=== PATIENT | male | born 1930 | race Hispanic/Latino ===

== ENCOUNTER 2017-04-27 16:57 | Emergency (ER) | payer MEDICARE ==
[2017-04-27 17:42] LABS: BASO % 0.4 % (0.0-2.0); EOS # 0.1 K/uL (0.0-0.7); EOS % 1.2 % (0.0-4.0); HEMATOCRIT 48.7 % (35.0-51.0); LYMPH # 1.5 K/uL (1.0-4.3); LYMPH % 30.6 % (20.0-40.0); MEAN CELL VOLUME 92.7 fL (80.0-94.0); MEAN CORPUSCULAR HEMOGLOBIN 31.4 pg (27.0-31.0); MEAN CORPUSCULAR HGB CONC 33.9 g/dL (33.0-37.0); MEAN PLATELET VOLUME 7.2 fL (7.2-11.7); MONO # 0.4 K/uL (0.0-0.8); MONO % 8.8 % (0.0-10.0); NRBC % 0.3 % (0.0-2.0); RED CELL DISTRIBUTION WIDTH 13.9 % (11.5-14.5); WHITE BLOOD COUNT 4.8 K/uL (4.8-10.8)
[2017-04-27 17:57] LABS: ALB/GLOB RATIO 1.6 (1.0-2.1); ALKALINE PHOSPHATASE 54 U/L (38-126); ALT/SGPT 26 U/L (21-72); AST/SGOT 25 U/L (17-59); BILIRUBIN,TOTAL 1.3 mg/dL (0.2-1.3); BLOOD UREA NITROGEN 19 mg/dL (9-20); CALCIUM 9.5 mg/dl (8.6-10.4); CARBON DIOXIDE 21 mmol/L (22-30); CHLORIDE 108 mmol/L (98-107); GFR AFRICAN-AMERICAN > 60; GLUCOSE,RANDOM 118 mg/dL (75-110); POTASSIUM 4.2 mmol/L (3.6-5.2); SODIUM 142 mmol/L (132-148); TOTAL PROTEIN 6.2 g/dL (6.3-8.3)
--- NOTE | 2017-04-27 18:25 | RAD ---
PROCEDURE: CHEST RADIOGRAPH, 1 VIEW HISTORY: chest pain COMPARISON: 05/29/2015 FINDINGS: LUNGS: Clear. PLEURA: No pneumothorax or pleural fluid seen. CARDIOVASCULAR: Normal. OSSEOUS STRUCTURES: No significant abnormalities. VISUALIZED UPPER ABDOMEN: Normal. OTHER FINDINGS: None. IMPRESSION: No active disease.
[2017-04-27 18:28] LABS: THYROID STIMULATING HORMONE 0.12 mIU/L (0.46-4.68)
[2017-04-27 19:27] VITALS: BP 162/83; PULSE 76; RESP 20; TEMP 98.3; O2SAT 95
--- NOTE | 2017-04-27 20:34 | C.PDOC ---
History Of Present Illness 86 year old male presents to the emergency department with complaints of palpitations beginning earlier today and lasted twenty seconds. Patient denies chest pain, fever, cough, dizziness, SOB, or headache. Time Seen by Provider: 04/27/17 17:15 Chief Complaint (Nursing): Medical Clearance History Per: Patient History/Exam Limitations: no limitations Onset/Duration Of Symptoms: Hrs Current Symptoms Are (Timing): Gone Recent travel outside of the [place]: No Past Medical History Reviewed: Historical Data, Nursing Documentation, Vital Signs Vital Signs: Last Vital Signs Temp 98.3 F 04/27/17 19:26 Pulse 76 04/27/17 19:26 Resp 20 04/27/17 19:26 BP 162/83 H 04/27/17 19:26 Pulse Ox 95 04/27/17 20:50 - Medical History PMH: Benign Prostatic Hyperplasia - [facility] Procedures INTRAOPER CHOLANGIOGRAM (05/25/13) LAPAROSCOPIC CHOLECYSTECTOMY (05/25/13) Family History: States: Unknown Family Hx - Social History Hx Tobacco Use: No Hx Alcohol Use: No Hx Substance Use: No - Immunization History Hx Tetanus Toxoid Vaccination: No Hx Influenza Vaccination: No Hx Pneumococcal Vaccination: No Review Of Systems Constitutional: Negative for: Fever, Chills Cardiovascular: Positive for: Palpitations. Negative for: Chest Pain Respiratory: Negative for: Cough, Shortness of Breath Neurological: Negative for: Headache Physical Exam - Physical Exam Appears: Non-toxic, No Acute Distress Skin: Warm, Dry Head: Atraumatic Eye(s): bilateral: Normal Inspection Oral Mucosa: Moist Neck: Supple Chest: Symmetrical, No Deformity, No Tenderness Cardiovascular: Rhythm Regular (80 bpm) Respiratory: Normal Breath Sounds, No Rhonchi, No Wheezing Neurological/Psych: Oriented x3, Normal Speech, Normal Cognition Gait: Steady ED Course And Treatment - Laboratory Results Result Diagrams: 04/27/17 17:37 04/27/17 17:37 ECG Rhythm: Sinus Rhythm (80 bpm ) Interpretation Of ECG: Left bundle branch block, 80 bpm, no change from 05/2013 EKG. O2 Sat by Pulse Oximetry: 95 (room air ) Progress Note: EKG was ordered and patient was given IV fluids. Upon re- evaluation, patient feels comfortable and will be discharged. Reassessment Condition: Improved Disposition - Disposition Referrals: [facility] Jagjit Melton, [Non-Staff] - Disposition: HOME/ ROUTINE Disposition Time: 18:35 Condition: GOOD Additional Instructions: Thank you for letting us take care of you today. Your provider was Dr. Farias. You were treated for palpitations. The emergency medical care you received today was directed at your acute symptoms. If you were prescribed any medication, please fill it and take as directed. It may take several days for your symptoms to resolve. Return to the Emergency Department if your symptoms worsen, do not improve, or if you have any other problems. Please contact your doctor or call one of the physicians/clinics you have been referred to that are listed on the Patient Visit Information form that is included in your discharge packet. Bring any paperwork you were given at discharge with you along with any medications you are taking to your follow up visit. Our treatment cannot replace ongoing medical care by a primary care provider (PCP) outside of the emergency department. Thank you for allowing the [facility] team to be part of your care today. Follow up with your doctor in 2 days for re-evaluation and further management. Instructions: Palpitations (ED) Forms: [employer] (German) - Clinical Impression Clinical Impression: Palpitations - Scribe Statement The provider has reviewed the documentation as recorded by the Scribe Sol Sevilla All medical record entries made by the Scribe were at my direction and personally dictated by me. I have reviewed the chart and agree that the record accurately reflects my personal performance of the history, physical exam, medical decision making, and the department course for this patient. I have also personally directed, reviewed, and agree with the discharge instructions and disposition.
--- NOTE | 2017-04-30 20:48 | CARD ---
APPROVED REPORT EKG Measurement Heart [id number] MD [id number] [id number] <Conclusion> Normal sinus rhythm Left axis deviation Left bundle branch block Abnormal ECG
== END 2017-04-27 19:26 | disposition home or self-care (01) ==
LOC: C.ER 16:57
DX: R00.2 Palpitations (principal)

== ENCOUNTER 2017-08-03 10:56 | Observation (INO) | payer MEDICARE ==
[2017-07-12 10:36] VITALS: BMI 25.8
[2017-08-03] MEDS ORDERED: cefTRIAXone IV 1 gm in Dextros 50 ML IVPB ONE (14:30)
[2017-08-03] MEDS ORDERED: Lidocaine 2% Jelly (Uro-Jet) ONE (14:30)
[2017-08-03] MEDS ORDERED: Lactated Ringer's 1,000 ML IV ONE (14:35)
[2017-08-03] MEDS ORDERED: Propofol 10 mg/ml Inj (20 ML) ONE (14:40)
[2017-08-03] MEDS ORDERED: HYDROmorphone 0.5 mg/0.5 ml ISec IVP PRN (15:28)
--- NOTE | 2017-08-03 15:37 | PCM.SURG1 ---
Surgeon's Initial Post Op Note - Surgeon's Notes Surgeon: vilma webber Concrete Bucket Loader: none Type of Anesthesia: General LMA Pre-Operative Diagnosis: hx of bladder tumor Operative Findings: same. abnormal mucosa at bn and prox prostatic urethra Post-Operative Diagnosis: same Operation Performed: TUR-BN, -PROSTATE Specimen/Specimens Removed: BN, PROSTATE Estimated Blood Loss: EBL {In ML}: 10 Blood Products Given: N/A Post-Op Condition: Good Date of Surgery/Procedure: 08/03/17 Time of Surgery/Procedure: 15:37
--- NOTE | 2017-08-03 21:17 | CP.PCM.HP ---
<Yoselin Amaro - Last Filed: 08/03/17 21:44> History of Present Illness - History of Present Illness History of Present Illness: This patient is an 86 year old male with PMHx of HTN and Bladder tumor admitted to the hospital for medical management s/p transuretal resection. Patient has no complaints at this time. He denies any fever, chills, chest pain, sob, or dysuria. ROS (+) very mild suprapubic tenderness (-) fever, chills, chest pain, sob, abdominal pain, n/v, changes in bowel habits, or dysuria PMHx: HTN, Bladder Tumor PSH: cholecystectomy (2012) Allergies: Denies SocialHx: Former smoker 1PPD for 30 years. Quit 15 years ago. Denies Alcohol or illicit drug use. 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 FamHx: Non-Contributory Meds: Valsartan 80 Daily, Flomax 0.4 Daily Present on Admission - Present on Admission Any Indicators Present on Admission: No Review of Systems - Review of Systems All systems: reviewed and no additional remarkable complaints except Review of Systems: As per HPI Past Patient History - Past Medical History & Family History Past Medical History?: Yes - Past Social History Smoking Status: Never Smoked - CARDIAC Hx Hypertension: Yes - PULMONARY Hx Respiratory Disorders: No - NEUROLOGICAL Hx Neurological Disorder: No - HEENT Hx HEENT Problems: Yes Hx Cataracts: Yes Other/Comment: retina problem - RENAL Hx Chronic Kidney Disease: No - ENDOCRINE/METABOLIC Hx Endocrine Disorders: No - HEMATOLOGICAL/ONCOLOGICAL Hx Blood Disorders: No - INTEGUMENTARY Hx Dermatological Problems: No - MUSCULOSKELETAL/RHEUMATOLOGICAL Hx Musculoskeletal Disorders: Yes Hx Osteoarthritis: Yes - GASTROINTESTINAL Hx Gastrointestinal Disorders: No - GENITOURINARY/GYNECOLOGICAL Hx Genitourinary Disorders: Yes Hx Bladder Cancer: Yes - PSYCHIATRIC Hx Psychophysiologic Disorder: No Hx Substance Use: No - SURGICAL HISTORY Hx Surgeries: Yes Hx Herniorrhaphy: Yes Other/Comment: BLADDER SX - ANESTHESIA Hx Anesthesia: Yes Hx Anesthesia Reactions: No Hx Malignant Hyperthermia: No Has any member of the family had a problem w/ anesthesia?: No Meds Allergies/Adverse Reactions: Allergies Allergy/AdvReac Type Severity Reaction Status Date / Time No Known Allergies Allergy Verified 07/12/17 10:24 Physical Exam - Head Exam Head Exam: ATRAUMATIC, NORMAL INSPECTION, NORMOCEPHALIC - Eye Exam Eye Exam: Normal appearance - ENT Exam ENT Exam: Mucous Membranes Moist - Neck Exam Additional comments: 2x2cm Hyperpigmented lesion (Chronic) on the back of the neck around the area of C7. Raised, irregular borders, non-tender. - Respiratory Exam Respiratory Exam: Clear to Auscultation Bilateral, NORMAL BREATHING PATTERN - Cardiovascular Exam Cardiovascular Exam: RRR, +S1, +S2 - GI/Abdominal Exam GI & Abdominal Exam: Normal Bowel Sounds, Soft. absent: Tenderness - Exam Exam: Bladder Distension - Extremities Exam Extremities exam: Positive for: normal capillary refill, pedal pulses present Additional comments: Cool Distal lower extremities. - Neurological Exam Neurological exam: Alert, Oriented x3 - Psychiatric Exam Psychiatric exam: Normal Affect, Normal Mood - Skin Skin Exam: Dry, Intact, Normal Color Results - Vital Signs Recent Vital Signs: Last Vital Signs Temp 97.2 F L 08/03/17 18:47 Pulse 90 08/03/17 18:47 Resp 16 08/03/17 18:47 BP 137/71 08/03/17 18:47 Pulse Ox 98 08/03/17 18:47 Assessment & Plan - Assessment and Plan (Free Text) Assessment: 86 year old male with PMHx of bladder tumor and HTN admitted for medical management s/p transurethral resection. Plan: S/P Transurethral Resection Management per Urology Flomax 0.4 Daily Cipro changed to Augmentin 875 BID due to adverse effects in elderly including AMS Pain control: Morphine 2 Q6 PRN Bladder Scan: Showed no retained urine Hx of HTN Home med includes Valsartan 80 Start Losartan 50 Daily Proph Protonix SCD's Patient discussed with Attending Yoselin Amaro PGY-1 - Date & Time Date: 08/03/17 Time: 22:01 <Neto Scott P - Last Filed: 08/04/17 22:06> Results - Vital Signs Recent Vital Signs: Last Vital Signs Temp 97.9 F 08/04/17 15:20 Pulse 95 H 08/04/17 15:20 Resp 20 08/04/17 15:20 BP 127/65 08/04/17 15:20 Pulse Ox 96 08/04/17 15:20 - Labs Result Diagrams: 08/04/17 08:41 Labs: Laboratory Results - last 24 hr 08/04/17 08:41 WBC 6.0 RBC 5.08 Hgb 16.4 Hct 48.6 MCV 95.7 H D MCH 32.3 H MCHC 33.7 RDW 13.9 Plt Count 110 L MPV 7.7 Neut % (Auto) 67.3 Lymph % (Auto) 20.6 [place] % (Auto) 10.4 H Eos % (Auto) 1.2 Baso % (Auto) 0.5 Neut # 4.1 Lymph # 1.2 [place] # 0.6 Eos # 0.1 Baso # 0.0 Attending/Attestation - Attestation I have personally seen and examined this patient.: Yes I have fully participated in the care of the patient.: Yes I have reviewed all pertinent clinical information: Yes Notes (Text): Assessment and plan S/p TURP, hematuria post op, has orlando, no obstruction, h/o htn controlled, plan for supportive care, home meds, augmentin, pain control, gi/dvt prophylaxis.
[2017-08-03] MEDS: Amoxicillin-Clav 875-125 mg Tab PO SCH (22:30)
[2017-08-04 08:50] LABS: BASO % 0.5 % (0.0-2.0); EOS # 0.1 K/uL (0.0-0.7); EOS % 1.2 % (0.0-4.0); HEMATOCRIT 48.6 % (35.0-51.0); LYMPH # 1.2 K/uL (1.0-4.3); LYMPH % 20.6 % (20.0-40.0); MEAN CORPUSCULAR HEMOGLOBIN 32.3 pg (27.0-31.0); MEAN CORPUSCULAR HGB CONC 33.7 g/dL (33.0-37.0); MEAN PLATELET VOLUME 7.7 fL (7.2-11.7); MONO # 0.6 K/uL (0.0-0.8); MONO % 10.4 % (0.0-10.0); NRBC % 0.3 % (0.0-2.0); RED CELL DISTRIBUTION WIDTH 13.9 % (11.5-14.5)
[2017-08-04 08:54] LABS: MEAN CELL VOLUME 95.7 fL (80.0-94.0)
--- NOTE | 2017-08-04 09:20 | CP.PCM.PN ---
<Marielena Carrillo - Last Filed: 08/04/17 09:13> Subjective - Date & Time of Evaluation Date of Evaluation: 08/04/17 Time of Evaluation: 08:20 - Subjective Subjective: PGY3 Medicine Note - Dr. Jack's service: Patient seen and examined at bedside this AM. Patient reports feeling well. Patient denies fever, chills, chest pain, SOb, abdominal pain, suprapubic pain, flank pain, dysuria. Patient says he has had orlando in since yesterday. Objective - Vital Signs/Intake and Output Vital Signs (last 24 hours): Temp Pulse Resp BP Pulse Ox 98.1 F 70 18 127/68 94 L 08/04/17 07:00 08/04/17 07:00 08/04/17 07:00 08/04/17 07:00 08/04/17 07:00 Intake and Output: 08/04/17 08/04/17 06:59 18:59 Intake Total 1400 Output Total 1900 Balance -500 - Medications Medications: Current Medications Amoxicillin/Clavulanate Potassium (Augmentin 875 Mg-125 Mg Tab) 1 tab PO Q12H [facility] Last Admin: 08/03/17 22:30 Dose: 1 tab Ciprofloxacin (Cipro) 500 mg PO Q12 KATELYN Losartan Potassium (Cozaar) 50 mg PO DAILY [facility] Morphine Sulfate (Morphine) 2 mg IVP Q6 PRN PRN Reason: Pain, severe (8-10) Tamsulosin HCl (Flomax) 0.4 mg PO DAILY KATELYN - Labs Labs: 08/04/17 08:41 - Constitutional Appears: Non-toxic, No Acute Distress - Head Exam Head Exam: NORMAL INSPECTION - Eye Exam Eye Exam: EOMI - ENT Exam ENT Exam: Mucous Membranes Moist - Respiratory Exam Respiratory Exam: Clear to Ausculation Bilateral, NORMAL BREATHING PATTERN. absent: Rales, Rhonchi, Wheezes - Cardiovascular Exam Cardiovascular Exam: REGULAR RHYTHM, +S1, +S2 - GI/Abdominal Exam GI & Abdominal Exam: Soft, Normal Bowel Sounds. absent: Tenderness - Exam Additional comments: orlando draining red urine - Extremities Exam Extremities Exam: absent: Pedal Edema - Neurological Exam Neurological Exam: Alert, Awake, Oriented x3 - Psychiatric Exam Psychiatric exam: Normal Affect, Normal Mood - Skin Skin Exam: Normal Color, Warm Assessment and Plan - Assessment and Plan (Free Text) Assessment: S/P Transurethral Resection Management per Urology - Dr. Silvia Castro - help appreciated Flomax 0.4 Daily Cipro changed to Augmentin 875 BID due to adverse effects in elderly including AMS Pain control: Morphine 2mg IVP Q6 PRN Bladder Scan: Showed no retained urine F/U urine culture Hx of HTN Home med includes Valsartan 80 Start Losartan 50mg PO Daily Prophylaxis Protonix 40mg PO daily SCD's VTE chemical prophylaxis contraindicated secondary to hematuria <Quinn Jack H - Last Filed: 08/04/17 15:03> Objective - Vital Signs/Intake and Output Vital Signs (last 24 hours): Temp Pulse Resp BP Pulse Ox 98.6 F 77 18 108/56 L 98 08/04/17 13:20 08/04/17 13:20 08/04/17 13:20 08/04/17 13:20 08/04/17 13:20 Intake and Output: 08/04/17 08/04/17 06:59 18:59 Intake Total 1400 Output Total 1900 Balance -500 - Medications Medications: Current Medications Amoxicillin/Clavulanate Potassium (Augmentin 875 Mg-125 Mg Tab) 1 tab PO Q12H [facility] Last Admin: 08/04/17 09:37 Dose: 1 tab Ciprofloxacin (Cipro) 500 mg PO Q12 [facility] Losartan Potassium (Cozaar) 50 mg PO DAILY [facility] Last Admin: 08/04/17 09:37 Dose: 50 mg Morphine Sulfate (Morphine) 2 mg IVP Q6 PRN PRN Reason: Pain, severe (8-10) Pantoprazole Sodium (Protonix Ec Tab) 40 mg PO DAILY [facility] Last Admin: 08/04/17 09:37 Dose: 40 mg Tamsulosin HCl (Flomax) 0.4 mg PO DAILY [facility] Last Admin: 08/04/17 09:37 Dose: 0.4 mg - Labs Labs: 08/04/17 08:41 Attending/Attestation - Attestation I have personally seen and examined this patient.: Yes I have fully participated in the care of the patient.: Yes I have reviewed all pertinent clinical information, including history, physical exam and plan: Yes Notes (Text): 08/04/17 15:03 Medical attending: Patient was seen and examined by me, agrees the above note by medical secretary teacher. As documented above patient is status post TURP. He's currently on Flomax at this time, he is also receiving pain control with morphine. He has a Orlando as well the family had some pink colored fluid in it. He reported that he was not having any penile or scrotal pain. He also denied having any abdominal pain. He is nevertheless on antibiotics by mouth He reported that his pain was well controlled and he did not have any concerns or situations overnight. He reported that overall he felt well. His primary concern was taking care of himself at home as he does not really feel comfortable with a Orlando bag. Received we get nursing to work with him to help take care of the [place] bag while he has. Thank you very much, Quinn Jack
[2017-08-04] MEDS: Amoxicillin-Clav 875-125 mg Tab PO SCH ×2 (09:37→21:22)
[2017-08-04] MEDS: Pantoprazole 40 mg EC Tab PO SCH (09:37)
[2017-08-04 19:58] VITALS: RESP 20
[2017-08-05 04:39] VITALS: TEMP 98.2
[2017-08-05 09:10] LABS: BASO % 0.4 % (0.0-2.0); EOS # 0.1 K/uL (0.0-0.7); EOS % 1.3 % (0.0-4.0); HEMATOCRIT 48.7 % (35.0-51.0); LYMPH # 1.7 K/uL (1.0-4.3); LYMPH % 25.4 % (20.0-40.0); MEAN CELL VOLUME 95.4 fL (80.0-94.0); MEAN CORPUSCULAR HEMOGLOBIN 31.7 pg (27.0-31.0); MEAN CORPUSCULAR HGB CONC 33.2 g/dL (33.0-37.0); MEAN PLATELET VOLUME 7.8 fL (7.2-11.7); MONO # 0.7 K/uL (0.0-0.8); MONO % 10.4 % (0.0-10.0); NRBC % 0.3 % (0.0-2.0); RED CELL DISTRIBUTION WIDTH 13.9 % (11.5-14.5); WHITE BLOOD COUNT 6.7 K/uL (4.8-10.8)
[2017-08-05 09:30] LABS: ALKALINE PHOSPHATASE 59 U/L (38-126); ALT/SGPT 79 U/L (21-72); AST/SGOT 45 U/L (17-59); BILIRUBIN,TOTAL 2.7 mg/dL (0.2-1.3); BLOOD UREA NITROGEN 20 mg/dL (9-20); CALCIUM 8.7 mg/dl (8.6-10.4); CARBON DIOXIDE 20 mmol/L (22-30); CHLORIDE 103 mmol/L (98-107); GFR AFRICAN-AMERICAN > 60; GLUCOSE,RANDOM 123 mg/dL (75-110); SODIUM 135 mmol/L (132-148)
[2017-08-05] MEDS: Amoxicillin-Clav 875-125 mg Tab PO SCH (09:31)
[2017-08-05] MEDS: Pantoprazole 40 mg EC Tab PO SCH (09:31)
--- NOTE | 2017-08-05 10:23 | CP.PCM.DIS ---
<Marielena Carrillo H - Last Filed: 08/05/17 10:20> Provider - Provider Date of Admission: 08/03/17 18:16 Attending physician: Neto Scott MD Consults: Dr. Yokasta Castro - urology Time Spent in preparation of Discharge (in minutes): 35 Diagnosis - Discharge Diagnosis (1) S/P TURP Status: Acute Priority: High Onset Date: ~08/03/17 Comment: Management per Urology - Dr. Silvia Castro - help appreciated. Flomax 0.4 Daily - continue at home. Cipro changed to Augmentin 875 BID due to adverse effects in elderly including AMS. Pain control: Morphine 2mg IVP Q6 PRN - not needed during stay as patient had no pain. Bladder Scan: Showed no retained urine. urine culture showed no growth (2) HTN (hypertension) Status: Chronic Priority: Medium Comment: Home med includes Valsartan 80. Started Losartan 50mg PO Daily in hospital. BP controlled throughout stay. Continue Valsartan at home Hospital Course - Lab Results Lab Results: Micro Results 08/03/17 16:09 Urine,Catheterized Urine Culture - Final No Growth (<1,000 CFU/ML) Most Recent Lab Values WBC 6.7 K/uL (4.8-10.8) 08/05/17 08:57 RBC 5.10 Mil/uL (4.40-5.90) 08/05/17 08:57 Hgb 16.2 g/dL (12.0-18.0) 08/05/17 08:57 Hct 48.7 % (35.0-51.0) 08/05/17 08:57 MCV 95.4 fL (80.0-94.0) H 08/05/17 08:57 MCH 31.7 pg (27.0-31.0) H 08/05/17 08:57 MCHC 33.2 g/dL (33.0-37.0) 08/05/17 08:57 RDW 13.9 % (11.5-14.5) 08/05/17 08:57 Plt Count 111 K/uL (130-400) L 08/05/17 08:57 MPV 7.8 fL (7.2-11.7) 08/05/17 08:57 Neut % (Auto) 62.5 % (50.0-75.0) 08/05/17 08:57 Lymph % (Auto) 25.4 % (20.0-40.0) 08/05/17 08:57 [place] % (Auto) 10.4 % (0.0-10.0) H 08/05/17 08:57 Eos % (Auto) 1.3 % (0.0-4.0) 08/05/17 08:57 Baso % (Auto) 0.4 % (0.0-2.0) 08/05/17 08:57 Neut # 4.2 K/uL (1.8-7.0) 08/05/17 08:57 Lymph # 1.7 K/uL (1.0-4.3) 08/05/17 08:57 [place] # 0.7 K/uL (0.0-0.8) 08/05/17 08:57 Eos # 0.1 K/uL (0.0-0.7) 08/05/17 08:57 Baso # 0.0 K/uL (0.0-0.2) 08/05/17 08:57 Sodium 135 mmol/L (132-148) 08/05/17 08:57 Potassium 4.0 mmol/L (3.6-5.2) 08/05/17 08:57 Chloride 103 mmol/L (98-107) 08/05/17 08:57 Carbon Dioxide 20 mmol/L (22-30) L 08/05/17 08:57 Anion Gap 16 (10-20) 08/05/17 08:57 BUN 20 mg/dL (9-20) 08/05/17 08:57 Creatinine 1.0 mg/dL (0.8-1.5) 08/05/17 08:57 Est GFR ( Amer) > 60 08/05/17 08:57 Est GFR (Non-Af Amer) > 60 08/05/17 08:57 Random Glucose 123 mg/dL (75-110) H 08/05/17 08:57 Calcium 8.7 mg/dl (8.6-10.4) 08/05/17 08:57 Total Bilirubin 2.7 mg/dL (0.2-1.3) H 08/05/17 08:57 AST 45 U/L (17-59) 08/05/17 08:57 ALT 79 U/L (21-72) H D 08/05/17 08:57 Alkaline Phosphatase 59 U/L (38-126) 08/05/17 08:57 Total Protein 6.0 g/dL (6.3-8.3) L 08/05/17 08:57 Albumin 4.0 g/dL (3.5-5.0) 08/05/17 08:57 - Hospital Course Hospital Course: HPI on admission: This patient is an 86 year old male with PMHx of HTN and Bladder tumor admitted to the hospital for medical management s/p transuretal resection. Patient has no complaints at this time. He denies any fever, chills, chest pain, sob, or dysuria. ROS (+) very mild suprapubic tenderness (-) fever, chills, chest pain, sob, abdominal pain, n/v, changes in bowel habits, or dysuria PMHx: HTN, Bladder Tumor PSH: cholecystectomy (2012) Allergies: Denies SocialHx: Former smoker 1PPD for 30 years. Quit 15 years ago. Denies Alcohol or illicit drug use. 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 Yokasta Castro. Patient had no pain the next day after surgery. Patient doing well. Patient walks on his own to the bathroom and back. Patient reports using a cane at home. Patient says he has not had any falls. Patient's BP is well controlled on Valsartan at home and Losartan in the hospital. Patient's WBC and temperature were stable in the hospital. Urine culture showed no growth. Patient will be discharged on his home meds ( Valsartan 80mg PO daily and Flomax 0.4mg PO daily) with the orlando in place per Dr. Castro. Patient needs to follow up with Dr. Castro in his office on Sunday. Patient was instructed how to use the orlando bag and empty it by the nurseKathy (thank you). Discharge Exam - Head Exam Head Exam: NORMAL INSPECTION - Eye Exam Eye Exam: EOMI - ENT Exam ENT Exam: Mucous Membranes Moist - Respiratory Exam Respiratory Exam: Clear to PA & Lateral, NORMAL BREATHING PATTERN. absent: Rhonchi, Wheezes, Respiratory Distress - Cardiovascular Exam Cardiovascular Exam: REGULAR RHYTHM, +S1, +S2. absent: Gallop, Rubs, Systolic Murmur - GI/Abdominal Exam GI & Abdominal Exam: Normal Bowel Sounds, Soft. absent: Distended, Firm, Tenderness - Exam Additional comments: orlando draining light pink urine - Neurological Exam Neurological exam: Alert, Oriented x3 - Psychiatric Exam Psychiatric exam: Normal Affect, Normal Mood - Skin Skin Exam: Normal Color, Warm Discharge Plan - Follow Up Plan Condition: GOOD Disposition: HOME/ ROUTINE Additional Instructions: Patient to be discharged home per Dr. Quinn Jack. Patient should resume home Flomax and Valsartan. Patient should empty orlando bag as needed. Patient should follow up with Dr. Yokasta Castro, urologist, tomorrow (Sunday08/06/17) in his office. Patient should also make an appointment and follow up with his PMD within one week of discharge. Patient should return to ED immediately if symptoms return or worsen. Referrals: Yokasta Castro MD [Staff Provider] - <Quinn Jack - Last Filed: 08/05/17 11:06> Provider - Provider Date of Admission: 08/03/17 18:16 Attending physician: Neto Scott MD Hospital Course - Lab Results Lab Results: Micro Results 08/03/17 16:09 Urine,Catheterized Urine Culture - Final No Growth (<1,000 CFU/ML) Most Recent Lab Values WBC 6.7 K/uL (4.8-10.8) 08/05/17 08:57 RBC 5.10 Mil/uL (4.40-5.90) 08/05/17 08:57 Hgb 16.2 g/dL (12.0-18.0) 08/05/17 08:57 Hct 48.7 % (35.0-51.0) 08/05/17 08:57 MCV 95.4 fL (80.0-94.0) H 08/05/17 08:57 MCH 31.7 pg (27.0-31.0) H 08/05/17 08:57 MCHC 33.2 g/dL (33.0-37.0) 08/05/17 08:57 RDW 13.9 % (11.5-14.5) 08/05/17 08:57 Plt Count 111 K/uL (130-400) L 08/05/17 08:57 MPV 7.8 fL (7.2-11.7) 08/05/17 08:57 Neut % (Auto) 62.5 % (50.0-75.0) 08/05/17 08:57 Lymph % (Auto) 25.4 % (20.0-40.0) 08/05/17 08:57 [place] % (Auto) 10.4 % (0.0-10.0) H 08/05/17 08:57 Eos % (Auto) 1.3 % (0.0-4.0) 08/05/17 08:57 Baso % (Auto) 0.4 % (0.0-2.0) 08/05/17 08:57 Neut # 4.2 K/uL (1.8-7.0) 08/05/17 08:57 Lymph # 1.7 K/uL (1.0-4.3) 08/05/17 08:57 [place] # 0.7 K/uL (0.0-0.8) 08/05/17 08:57 Eos # 0.1 K/uL (0.0-0.7) 08/05/17 08:57 Baso # 0.0 K/uL (0.0-0.2) 08/05/17 08:57 Sodium 135 mmol/L (132-148) 08/05/17 08:57 Potassium 4.0 mmol/L (3.6-5.2) 08/05/17 08:57 Chloride 103 mmol/L (98-107) 08/05/17 08:57 Carbon Dioxide 20 mmol/L (22-30) L 08/05/17 08:57 Anion Gap 16 (10-20) 08/05/17 08:57 BUN 20 mg/dL (9-20) 08/05/17 08:57 Creatinine 1.0 mg/dL (0.8-1.5) 08/05/17 08:57 Est GFR ( Amer) > 60 08/05/17 08:57 Est GFR (Non-Af Amer) > 60 08/05/17 08:57 Random Glucose 123 mg/dL (75-110) H 08/05/17 08:57 Calcium 8.7 mg/dl (8.6-10.4) 08/05/17 08:57 Total Bilirubin 2.7 mg/dL (0.2-1.3) H 08/05/17 08:57 AST 45 U/L (17-59) 08/05/17 08:57 ALT 79 U/L (21-72) H D 08/05/17 08:57 Alkaline Phosphatase 59 U/L (38-126) 08/05/17 08:57 Total Protein 6.0 g/dL (6.3-8.3) L 08/05/17 08:57 Albumin 4.0 g/dL (3.5-5.0) 08/05/17 08:57 Globulin 2.0 gm/dL (2.2-3.9) L 08/05/17 08:57 Albumin/Globulin Ratio 2.0 (1.0-2.1) 08/05/17 08:57 Attending/Attestation - Attestation I have personally seen and examined this patient.: Yes I have fully participated in the care of the patient.: Yes I have reviewed all pertinent clinical information, including history, physical exam and plan: Yes Notes (Text): Medical Attending: Patient was seen and examined by me. Agree with the above note by the resident The patient was not in any distress. The reason he did not leave yesterday was because he was scared of going with a orlando. He thought he'd have to insert the orlando himself at home he said and so I spoke with him and explained he only needs to empty the bag and that they'd change it to a smaller urine collection bag. To be fair to him he is extremely hard of hearing and you kind of have to shout into his ears for him to hear. Otherwise he is really cooperative and alert. He understands he needs to follow with urology thank you Quinn Jack
[2017-08-05 14:33] VITALS: BP 129/72; PULSE 81; O2SAT 95
--- NOTE | 2017-08-05 18:14 | OP ---
PROCEDURE DATE: 08/03/2017 PREOPERATIVE DIAGNOSIS: History of bladder tumor. POSTOPERATIVE DIAGNOSIS: History of bladder tumor. PROCEDURE: Cystoscopy. Transurethral resection of bladder neck and proximal prostate. PROCEDURE FOLLOWS: The patient received anesthesia. The patient was placed in lithotomy position. Genitalia prepped and sterilely. The patient received anesthesia by the anesthesiologist. The patient received perioperative antibiotics. A 26-[place] continuous flow resectoscope sheath was introduced under direct vision. The urethra, prostate and bladder were inspected 30-degree lens. FINDINGS: There was no stricture in the anterior urethra. There was evidence of previous prostatic resection. There was abnormal mucosa located at the bladder neck. There is some nodularity. There is granular and papillary mucosa at the bladder neck on the right side. There was a similar abnormal mucosa extending from the bladder neck into the prostatic urethra. The bladder demonstrated moderate bladder trabeculation. There was cellules. There was no bladder stone. There were no papillary bladder tumors within the bladder. The ureteral orifices were normal position and shape. The trigone was normal. The lateral friedman and dome of the bladder demonstrated no tumor as well. There was moderate bladder trabeculation, as mentioned. Resection of the abnormal mucosa and tissue at the bladder neck and proximal prostatic urethra were performed. Hemostasis was achieved using electrocautery. The specimens were removed using the [place] scientific evacuator. The bladder was reinspected. There were no residual tumor chips. Hemostasis was complete. The resectoscope and sheath were removed. A Lerma catheter was inserted. Bladder drainage was clear. Rectal examination was performed. Prostate was supple and smooth, approximately 20 g in size. There was no abnormal pelvic mass fixation or induration. The patient was returned to the supine position. The patient tolerated procedure without complication. Yokasta Castro MD cc: Yokasta Castro MD
== END 2017-08-05 16:45 | disposition home or self-care (01) ==
LOC: C.SDS 10:56 → C.9E 18:16 → C.6T 20:22
PROVIDERS: ADMIT Internal Medicine; ATTEND Internal Medicine
DX: D49.4 Neoplasm of unspecified behavior of bladder (principal); N32.89 Other specified disorders of bladder; R31.9 Hematuria, unspecified; I10 Essential (primary) hypertension; Z87.891 Personal history of nicotine dependence
CPT/HCPCS: 36415; 52500; 53899; 80053; 85025; 87086; 88104; 88305; 88342; A4322; G0378; J0696; J1170; J7120

== ENCOUNTER 2018-07-11 12:51 | Emergency (ER) | payer MEDICARE ==
[2018-07-11 12:52] VITALS: BMI 25.8
[2018-07-11 13:07] VITALS: BP 162/76; PULSE 88; RESP 20; TEMP 97.3; O2SAT 96
--- NOTE | 2018-07-11 15:09 | RAD ---
Date of service: 07/11/2018 PROCEDURE: Right Knee Radiographs. HISTORY: PAIN COMPARISON: None. FINDINGS: BONES: Normal. No fracture. JOINTS: Joint spaces preserved. No articular erosion. Chondrocalcinosis of lateral meniscus. JOINT EFFUSION: None. OTHER FINDINGS: None. IMPRESSION: No evidence of fracture or arthritis.
--- NOTE | 2018-07-11 15:14 | C.PDOC ---
History Of Present Illness 87 year old male presents to the ER with a complaint of right knee pain for the past one week. Patient states he feels a shooting pain down the right leg when he walks. Denies weakness, numbness, or injury. Patient had arthroscopic surgery on the knee 3-4 years ago but states his surgeon retired. Time Seen by Provider: 07/11/18 13:09 Chief Complaint (Nursing): Lower Extremity Problem/Injury History Per: Patient History/Exam Limitations: no limitations Onset/Duration Of Symptoms: Days (1 week) Current Symptoms Are (Timing): Still Present Recent travel outside of the [place]: No Past Medical History Reviewed: Historical Data, Nursing Documentation, Vital Signs Vital Signs: Last Vital Signs Temp 97.3 F L 07/11/18 13:07 Pulse 88 07/11/18 13:07 Resp 20 07/11/18 13:07 BP 162/76 H 07/11/18 13:07 Pulse Ox 96 07/11/18 13:07 - Medical History PMH: Benign Prostatic Hyperplasia, HTN Denies: Chronic Kidney Disease - [facility] Procedures INTRAOPER CHOLANGIOGRAM (05/25/13) LAPAROSCOPIC CHOLECYSTECTOMY (05/25/13) Family History: States: Unknown Family Hx - Social History Hx Tobacco Use: No Hx Alcohol Use: No Hx Substance Use: No - Immunization History Hx Tetanus Toxoid Vaccination: No Hx Influenza Vaccination: No Hx Pneumococcal Vaccination: No Review Of Systems Musculoskeletal: Positive for: Other (Right knee pain) Neurological: Negative for: Weakness, Numbness Physical Exam - Physical Exam Appears: Non-toxic Skin: Normal Color, Warm, Dry Head: Atraumatic, Normacephalic Eye(s): bilateral: Normal Inspection Extremity: Normal ROM (x4), Calf Tenderness (Mild right), Capillary Refill (<2 seconds), No Deformity, No Swelling Pulses: Left Dorsalis Pedis: Normal, Right Dorsalis Pedis: Normal Neurological/Psych: Oriented x3, Normal Speech, Normal Motor, Normal Sensation Gait: Steady ED Course And Treatment O2 Sat by Pulse Oximetry: 96 (Room air) Pulse Ox Interpretation: Normal - Other Rad Right knee x-ray X-Ray: Viewed By Me, Read By Radiologist Interpretation: PROCEDURE: Right Knee Radiographs. HISTORY: PAIN. COMPARISON: None. FINDINGS: BONES: Normal. No fracture. JOINTS: Joint spac es preserved. No articular erosion. Chondrocalcinosis of lateral meniscus. JOINT EFFUSION: None. OTHER FINDINGS: None. IMPRESSION: No evidence of fracture or arthritis. Venous duplex X-Ray: Viewed By Me, Read By Radiologist Interpretation: Negative. Progress Note: Right knee x-ray and venous duplex, results were negative. Patient resting comfortably in the ER in no acute distress, ambulatory with steady gait, vitals are stable, patient placed in knee brace for support and discharged with ortho referral. Disposition - Disposition Referrals: Ibrahima Perez MD [Staff Provider] - Disposition: HOME/ ROUTINE Disposition Time: 15:14 Condition: STABLE Additional Instructions: Follow up with PMD and Orthopedist within 1-2 days. Return to ED if feel worse. Prescriptions: Naproxen [Naprosyn Tab] 375 mg PO BID #20 tab Famotidine [Pepcid] 20 mg PO BID #20 tab Instructions: Knee Pain (DC) Forms: [employer] (Martiniquais) - Clinical Impression Clinical Impression: Knee pain - PA / MEDICAL INVESTIGATOR / Resident Statement MD/DO has reviewed & agrees with the documentation as recorded. - Scribe Statement The provider has reviewed the documentation as recorded by the Scribe Juan Rick All medical record entries made by the [place]wasi[place]goran were at my direction and personally dictated by me. I have reviewed the chart and agree that the record accurately reflects my personal performance of the history, physical exam, medical decision making, and the department course for this patient. I have also personally directed, reviewed, and agree with the discharge instructions and di sposition.
--- NOTE | 2018-07-12 09:52 | VASCLAB ---
Date of service: 07/11/2018 PROCEDURE: Right Lower Extremity Venous Duplex Exam. HISTORY: Pain in limb. PRIORS: None. TECHNIQUE: Right common femoral, femoral, popliteal and posterior tibial, peroneal and great saphenous veins were evaluated. Flow was assessed with color Doppler, compressibility, assessment of phasic flow and augmentation response. Report prepared by DENIS Wyatt FINDINGS: RIGHT: 1. Common Femoral Vein: 1.1. Compressibility - Fully compressible: Thrombus - None: Flow - Phasic: Augmentation -Normal: Reflux - None. 2. Femoral Vein: 2.1. Compressibility - Fully compressible: Thrombus - None: Flow - Phasic: Augmentation -Normal: Reflux - None. 3. Popliteal Vein: 3.1. Compressibility - Fully compressible: Thrombus - None: Flow - Phasic: Augmentation -Normal: Reflux - None. 4. Posterior Tibial Vein: 4.1. Compressibility - Fully compressible: Thrombus - None: Flow - Phasic: Augmentation -Normal: Reflux - None. 5. Peroneal Vein: 5.1. Compressibility - Fully compressible: Thrombus - None: Flow - Phasic: Augmentation -Normal: Reflux - None. 6. Great Saphenous Vein: 6.1. Compressibility - Fully compressible: Thrombus -None: Flow - Phasic: Augmentation - Normal: Reflux - Mild 2.02s OTHER FINDINGS: Normal venous flow noted in the LEFT common femoral vein. IMPRESSION: No evidence of deep or superficial vein thrombosis of the right lower extremity with excellent venous flow. Mild valvular incompetence noted of the right great saphenous vein.
== END 2018-07-11 15:40 | disposition home or self-care (01) ==
LOC: C.ER 12:51
DX: M25.561 Pain in right knee (principal)